=== PATIENT | male | born 1955 | race Caucasian/White ===

== ENCOUNTER 2020-02-19 14:29 | Emergency (ER) | payer MEDICAID, SELFPAY ==
[~2020-02-19] VITALS: Ht 165.1 cm; Wt 85.9 kg
[2020-02-19 17:31] VITALS: BP 117/63
== END 2020-02-19 17:33 | disposition home or self-care (01) ==
LOC: ER 14:29
DX: U07.1 COVID-19 (principal); E11.9 Type 2 diabetes mellitus without complications; I11.0 Hypertensive heart disease with heart failure
CPT/HCPCS: 71045; 87635; 93005; 99285